=== PATIENT | female | born 2000 | race Caucasian/White ===

== ENCOUNTER 2020-04-29 20:05 | Emergency (ER) | payer BC ==
[2020-04-29 20:21] VITALS: BP 136/96; PULSE 80; TEMP 98.3; BMI 20.4
== END 2020-04-29 20:34 | disposition home or self-care (01) ==
LOC: FER 20:05
DX: S00.83XA Contusion of other part of head, initial encounter (principal)
CPT/HCPCS: 99283-25; 99284-25

== ENCOUNTER 2020-10-19 04:41 | Day surgery (SDC) | payer BC ==
[2020-10-16 13:49] VITALS: BMI 19.8
[2020-10-19] MEDS ORDERED: fentaNYL CITRATE 250 MCG/5 ML VIAL ONE (10:29)
[2020-10-19] MEDS ORDERED: MIDAZOLAM HCL 2 MG/2 ML SINGLE DOSE VIAL ONE (10:29)
[2020-10-19] MEDS ORDERED: ACETAMINOPHEN INJECTION 100 ML IVPB ONE (10:45)
[2020-10-19] MEDS ORDERED: ceFAZolin 2 GRAM PREMIX BAG IVPB ONE (11:00)
[2020-10-19] MEDS ORDERED: METHYLENE BLUE 1% 10 MG/1 ML VIAL NR ONE (11:15)
[2020-10-19] MEDS ORDERED: METHYLENE BLUE 50 MG/10 ML AMPUL ONE (11:16)
[2020-10-19] MEDS ORDERED: SUCCINYLCHOLINE CHLORIDE 200 MG/10 ML SYRINGE ONE (11:25)
[2020-10-19] MEDS ORDERED: LIDOCAINE HCL/PF 2% SDV 5ML VIAL ONE (11:27)
[2020-10-19] MEDS ORDERED: PROMETHAZINE HCL 25 MG/1 ML VIAL IVPUSH PRN (15:29)
[2020-10-19] MEDS ORDERED: oxyCODONE HCL 5 MG TABLET PO PRN (16:41)
[2020-10-19] MEDS ORDERED: oxyCODONE HCL 5 MG TABLET ONE (18:30)
[2020-10-19 19:40] VITALS: BP 107/61; PULSE 87; TEMP 97.8
== END 2020-10-19 19:45 | disposition home or self-care (01) ==
LOC: JASU-SURG 04:41
PROVIDERS: ATTEND Plastic Surgery
PROC: 0HBV0ZZ Excision of Bilateral Breast, Open Approach (ICD-10-PCS; principal; 2020-10-19 10:50)
DX: N62 Hypertrophy of breast (principal); M54.89 Other dorsalgia; M54.2 Cervicalgia; M25.512 Pain in left shoulder; M25.511 Pain in right shoulder
CPT/HCPCS: 81025; 88305-TC; 94760; J0131; Q9968